=== PATIENT | female | born 1990 | race African-American/Black ===

== ENCOUNTER 2020-03-31 18:39 | Emergency (ER) | payer OTHER, SELFPAY ==
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
[2020-03-31 18:40] VITALS: BP 151/97; PULSE 96; RESP 16; TEMP 36.9; O2SAT 98
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
--- NOTE | 2020-03-31 20:52 | PC.NURSE ---
Pt returns to CT for additional images.
== END 2020-03-31 22:00 | disposition home or self-care (01) ==
PROVIDERS: Emergency Provider General Practice
DX: S09.90XA Unspecified injury of head, initial encounter (principal); G93.0 Cerebral cysts; V49.40XA Driver injured in collision with unspecified motor vehicles in traffic accident, initial encounter
CPT/HCPCS: 70110; 70450; 81025; 99284